=== PATIENT | male | born 1950 | race Caucasian/White ===

== ENCOUNTER 2019-03-25 18:11 | Inpatient (IN) ==
[2019-03-25] MEDS ORDERED: 0.9 % Sodium Chloride 1,000 ML IVC STA (19:29)
[2019-03-25 20:41] LABS: BUN/Creatinine Ratio 28 (6-26); Blood Urea Nitrogen 35 mg/dL (8-23); Calcium 9.2 mg/dL (8.6-10.3); Carbon Dioxide 25 mEq/L (23-29); Chloride 102 mEq/L (98-107); Glucose 97 mg/dL (70-105); Magnesium 2.5 mg/dL (1.6-2.6); Osmolality,Calculated 280 (280-300); Potassium 4.2 mEq/L (3.5-5.1); Sodium 131 mEq/L (136-145); eGFR For African Americans > 60 (> 60); eGFR For Non-African Americans 57 (> 60)
[2019-03-25] MEDS ORDERED: Ondansetron 4 MG/2 ML VIAL IVP PRN (22:17)
[2019-03-25] MEDS ORDERED: Naloxone 0.4 MG/ML INJ IVP PRN (22:17)
[2019-03-25 22:58] LABS: Bilirubin,Urine Negative (Negative); Blood,Urine Large (Negative); Clarity,Urine Clear (Clear); Color,Urine Yellow (Yellow); Glucose,Urine (UA) Normal (Normal); Ketones,Urine Trace mg/dL (Negative); Leukocyte Esterase,Urine Moderate (Negative); Nitrite,Urine Negative (Negative); Protein,Urine 30 mg/dL (Neg-Trace); Specific Gravity,Urine 1.018 (1.010-1.025); Urobilinogen,Urine Normal (Normal)
[2019-03-25 23:08] LABS: Bacteria,Urine None Seen per hpf (None-Few); Hyaline Casts,Urine None Seen per lpf (None-Few); Squamous Epithelial Cell,Urine Moderate per lpf (None-Few); WBC,Urine 15-30 per hpf (0-3)
[2019-03-25] MEDS: D5% in 0.9% NACL 1,000 ML IVC SCH (23:14)
[2019-03-25] MEDS: *HR* OxyCODONE Immed Rel 5 MG TABLET PO PRN (23:17)
[2019-03-25 23:29] LABS: BUN/Creatinine Ratio 28 (6-26); Blood Urea Nitrogen 31 mg/dL (8-23); Calcium 8.8 mg/dL (8.6-10.3); Carbon Dioxide 22 mEq/L (23-29); Chloride 103 mEq/L (98-107); Glucose 88 mg/dL (70-105); Magnesium 2.1 mg/dL (1.6-2.6); Osmolality,Calculated 284 (280-300); Potassium 4.3 mEq/L (3.5-5.1); Sodium 134 mEq/L (136-145); eGFR For African Americans > 60 (> 60); eGFR For Non-African Americans > 60 (> 60)
[2019-03-25 23:38] LABS: Basophils % 0.1 %; Eosinophils % 0.1 %; Hematocrit 27.3 % (37.5-50.1); Hemoglobin 8.6 g/dL (12.9-16.9); Immature Granulocytes % 0.7 % (0-4); Lymphocytes % 9.1 %; Mean Corpuscular HGB Conc 31.5 g/dL (31.6-35.5); Mean Corpuscular Hemoglobin 30.1 pg (28.0-33.3); Mean Corpuscular Volume 95.5 fL (83.0-100.0); Mean Platelet Volume 9.8 fL (9.4-12.4); Monocytes # 0.6 K/mcL (0.0-1.3); Monocytes % 5.3 %; Neutrophils # 8.9 K/mcL (1.6-8.9); Platelet Count 183 K/mcL (140-400); Red Blood Count 2.86 M/mcL (4.19-5.50); Red Cell Distribution Width 15.1 % (11.5-14.5); Segmented Neutrophils % 84.7 %; White Blood Count 10.5 K/mcL (4.3-11.1)
[2019-03-26] MEDS ORDERED: OXYCODONE HCL 5 MG PO SCH
[2019-03-26] MEDS: Cefepime HCl 2,000 MG in Water for inj. (sterile) 20 ML IVP SCH ×3 (00:24→17:49)
[2019-03-26 01:20] LABS: Hematocrit 23.2 % (37.5-50.1); Hemoglobin 7.5 g/dL (12.9-16.9); Mean Corpuscular HGB Conc 32.3 g/dL (31.6-35.5); Mean Corpuscular Hemoglobin 30.2 pg (28.0-33.3); Mean Corpuscular Volume 93.5 fL (83.0-100.0); Mean Platelet Volume 9.9 fL (9.4-12.4); Platelet Count 164 K/mcL (140-400); Red Blood Count 2.48 M/mcL (4.19-5.50); White Blood Count 8.9 K/mcL (4.3-11.1)
[2019-03-26 01:38] LABS: BUN/Creatinine Ratio 30 (6-26); Blood Urea Nitrogen 29 mg/dL (8-23); Calcium 8.3 mg/dL (8.6-10.3); Carbon Dioxide 22 mEq/L (23-29); Chloride 106 mEq/L (98-107); Glucose 114 mg/dL (70-105); Osmolality,Calculated 285 (280-300); Potassium 4.3 mEq/L (3.5-5.1); Sodium 134 mEq/L (136-145); eGFR For African Americans > 60 (> 60); eGFR For Non-African Americans > 60 (> 60)
[2019-03-26] MEDS: *HR* OxyCODONE Immed Rel 5 MG TABLET PO PRN ×4 (06:06→22:47)
[2019-03-26 06:14] LABS: Eosinophils % 0.1 %; Hematocrit 23.5 % (37.5-50.1); Hemoglobin 7.5 g/dL (12.9-16.9); Immature Granulocytes % 0.5 % (0-4); Lymphocytes # 1.3 K/mcL (0.6-4.6); Lymphocytes % 13.2 %; Mean Corpuscular HGB Conc 31.9 g/dL (31.6-35.5); Mean Corpuscular Hemoglobin 30.1 pg (28.0-33.3); Mean Corpuscular Volume 94.4 fL (83.0-100.0); Mean Platelet Volume 9.3 fL (9.4-12.4); Monocytes # 0.8 K/mcL (0.0-1.3); Neutrophils # 7.4 K/mcL (1.6-8.9); Platelet Count 160 K/mcL (140-400); Red Blood Count 2.49 M/mcL (4.19-5.50); Red Cell Distribution Width 15.1 % (11.5-14.5); Segmented Neutrophils % 78.2 %; White Blood Count 9.5 K/mcL (4.3-11.1)
[2019-03-26 06:34] LABS: BUN/Creatinine Ratio 26 (6-26); Blood Urea Nitrogen 25 mg/dL (8-23); Calcium 8.5 mg/dL (8.6-10.3); Carbon Dioxide 24 mEq/L (23-29); Chloride 104 mEq/L (98-107); Glucose 129 mg/dL (70-105); Osmolality,Calculated 288 (280-300); Potassium 4.6 mEq/L (3.5-5.1); Sodium 136 mEq/L (136-145); eGFR For African Americans > 60 (> 60); eGFR For Non-African Americans > 60 (> 60)
[2019-03-26 08:54] LABS: Acinetobacter baumannii by PCR Not Detected (Not Detect); Enterobacteriaceae by PCR Not Detected (Not Detect); Enterococcus by PCR DETECTED (Not Detect); Staphylococcus aureus by PCR Not Detected (Not Detect); Staphylococcus by PCR Not Detected (Not Detect); Streptococcus agalactiae(B)PCR Not Detected (Not Detect); Streptococcus by PCR Not Detected (Not Detect); Streptococcus pneumoniae PCR Not Detected (Not Detect); Streptococcus pyogenes (A) PCR Not Detected (Not Detect); blaKPC Carbapenem-Resist Gene Not Detected (Not Detect); mecA Methicillin-Resist Gene Not Detected (Not Detect); vanA/B Vancomycin-Resist Genes Not Detected (Not Detect)
[2019-03-26 08:55] LABS: Candida albicans by PCR Not Detected (Not Detect); Candida glabrata by PCR Not Detected (Not Detect); Candida krusei by PCR Not Detected (Not Detect); Candida parapsilosis by PCR Not Detected (Not Detect); Candida tropicalis by PCR Not Detected (Not Detect); Enterobacter cloacae Cmplx PCR Not Detected (Not Detect); Escherichia coli by PCR Not Detected (Not Detect); Klebsiella oxytoca by PCR Not Detected (Not Detect); Klebsiella pneumoniae by PCR Not Detected (Not Detect); Proteus by PCR Not Detected (Not Detect); Pseudomonas aeruginosa by PCR Not Detected (Not Detect); Serratia marcescens by PCR Not Detected (Not Detect)
[2019-03-26 12:17] LABS: Hematocrit 23.2 % (37.5-50.1); Hemoglobin 7.5 g/dL (12.9-16.9)
[2019-03-26] MEDS: D5% in 0.9% NACL 1,000 ML IVC SCH (12:49)
[2019-03-26] MEDS ORDERED: NON-FORMULARY MEDICATION 1 EACH EACH (Melatonin 5 MG) PO PRN (14:52)
[2019-03-26] MEDS ORDERED: Isovue-370 500 ML BOTTLE IVP ONE (16:34)
[2019-03-26 17:32] LABS: Alanine Aminotransferase 20 Units/L (7-52); Albumin 2.7 g/dL (3.5-5.7); Albumin/Globulin Ratio 0.8 (1.1-2.2); Alkaline Phosphatase 64 Units/L (34-104); Amylase 28 Units/L (29-103); Aspartate Amino Transferase 18 Units/L (13-39); Bilirubin,Direct 0.3 mg/dL (0.0-0.2); Bilirubin,Indirect 0.5 mg/dL (0.0-1.2); Bilirubin,Total 0.8 mg/dL (0.3-1.0); Globulin 3.5 g/dL (2.4-3.5); Lipase < 3 Units/L (11-82); Total Protein 6.2 g/dL (6.4-8.9)
[2019-03-26] MEDS: Acetaminophen 325 MG TABLET PO PRN (23:24)
[2019-03-27] MEDS: Ampicillin/Sulbactam 3,000 MG in 0.9 % Sodium Chloride Mini Bag 100 ML IVPB SCH ×4 (00:25→18:06)
[2019-03-27] MEDS: *HR* OxyCODONE Immed Rel 5 MG TABLET PO PRN ×4 (03:37→19:27)
[2019-03-27 04:32] LABS: Basophils % 0.1 %; Eosinophils # 0.1 K/mcL (0.0-0.6); Eosinophils % 0.4 %; Hematocrit 24.3 % (37.5-50.1); Hemoglobin 7.6 g/dL (12.9-16.9); Immature Granulocytes % 0.7 % (0-4); Lymphocytes # 1.6 K/mcL (0.6-4.6); Lymphocytes % 11.8 %; Mean Corpuscular HGB Conc 31.3 g/dL (31.6-35.5); Mean Corpuscular Hemoglobin 29.8 pg (28.0-33.3); Mean Corpuscular Volume 95.3 fL (83.0-100.0); Mean Platelet Volume 9.6 fL (9.4-12.4); Monocytes # 1.2 K/mcL (0.0-1.3); Neutrophils # 10.5 K/mcL (1.6-8.9); Platelet Count 167 K/mcL (140-400); Red Blood Count 2.55 M/mcL (4.19-5.50); Red Cell Distribution Width 15.3 % (11.5-14.5); White Blood Count 13.5 K/mcL (4.3-11.1)
[2019-03-27 04:50] LABS: BUN/Creatinine Ratio 21 (6-26); Blood Urea Nitrogen 22 mg/dL (8-23); Calcium 8.4 mg/dL (8.6-10.3); Carbon Dioxide 23 mEq/L (23-29); Chloride 104 mEq/L (98-107); Glucose 119 mg/dL (70-105); Osmolality,Calculated 282 (280-300); Potassium 4.4 mEq/L (3.5-5.1); Sodium 134 mEq/L (136-145); eGFR For African Americans > 60 (> 60); eGFR For Non-African Americans > 60 (> 60)
[2019-03-27] MEDS: D5% in 0.9% NACL 1,000 ML IVC SCH ×2 (05:10→21:19)
[2019-03-27] MEDS: Acetaminophen 325 MG TABLET PO PRN (08:03)
[2019-03-27] MEDS ORDERED: Gadolinium Contrast Agent (WT Based) IV PRN (17:12)
[2019-03-27] MEDS: traZODone 50 MG TABLET PO PRN (22:46)
[2019-03-28] MEDS: *HR* OxyCODONE Immed Rel 5 MG TABLET PO PRN ×4 (00:48→22:52)
[2019-03-28] MEDS: Ampicillin/Sulbactam 3,000 MG in 0.9 % Sodium Chloride Mini Bag 100 ML IVPB SCH ×4 (00:48→18:28)
[2019-03-28 07:13] LABS: Eosinophils # 0.1 K/mcL (0.0-0.6); Eosinophils % 0.9 %; Hematocrit 22.6 % (37.5-50.1); Immature Granulocytes % 0.6 % (0-4); Lymphocytes # 1.2 K/mcL (0.6-4.6); Lymphocytes % 9.4 %; Mean Corpuscular Hemoglobin 29.3 pg (28.0-33.3); Mean Corpuscular Volume 94.6 fL (83.0-100.0); Mean Platelet Volume 9.5 fL (9.4-12.4); Monocytes # 1.2 K/mcL (0.0-1.3); Neutrophils # 10.4 K/mcL (1.6-8.9); Platelet Count 188 K/mcL (140-400); Red Blood Count 2.39 M/mcL (4.19-5.50); Red Cell Distribution Width 15.2 % (11.5-14.5); Segmented Neutrophils % 80.1 %; White Blood Count 12.9 K/mcL (4.3-11.1)
[2019-03-28 07:32] LABS: BUN/Creatinine Ratio 19 (6-26); Blood Urea Nitrogen 18 mg/dL (8-23); Calcium 8.4 mg/dL (8.6-10.3); Carbon Dioxide 24 mEq/L (23-29); Chloride 103 mEq/L (98-107); Glucose 118 mg/dL (70-105); Osmolality,Calculated 279 (280-300); Potassium 4.3 mEq/L (3.5-5.1); Sodium 133 mEq/L (136-145); eGFR For African Americans > 60 (> 60); eGFR For Non-African Americans > 60 (> 60)
[2019-03-28] MEDS: D5% in 0.9% NACL 1,000 ML IVC SCH (12:30)
[2019-03-28] MEDS ORDERED: Aminoglycoside Consult 1 EACH MC ONE (12:30)
[2019-03-28] MEDS ORDERED: Gadolinium Contrast Agent (WT Based) IV PRN (14:53)
[2019-03-28] MEDS ORDERED: D5% in 0.9% NACL 1,000 ML IVC SCH (16:31)
[2019-03-28] MEDS: Ipratropium/Albuterol Neb 3 ML IH PRN ×2 (17:53→20:29)
[2019-03-28] MEDS: traZODone 50 MG TABLET PO PRN (22:53)
[2019-03-29] MEDS: Ampicillin/Sulbactam 3,000 MG in 0.9 % Sodium Chloride Mini Bag 100 ML IVPB SCH ×4 (01:18→12:48)
[2019-03-29 04:54] LABS: Basophils % 0.1 %; Eosinophils # 0.1 K/mcL (0.0-0.6); Eosinophils % 0.7 %; Hematocrit 23.3 % (37.5-50.1); Hemoglobin 7.3 g/dL (12.9-16.9); Immature Granulocytes % 0.4 % (0-4); Lymphocytes # 1.6 K/mcL (0.6-4.6); Lymphocytes % 11.6 %; Mean Corpuscular HGB Conc 31.3 g/dL (31.6-35.5); Mean Corpuscular Hemoglobin 29.2 pg (28.0-33.3); Mean Corpuscular Volume 93.2 fL (83.0-100.0); Mean Platelet Volume 9.2 fL (9.4-12.4); Monocytes # 1.2 K/mcL (0.0-1.3); Neutrophils # 10.7 K/mcL (1.6-8.9); Platelet Count 208 K/mcL (140-400); Red Cell Distribution Width 15.2 % (11.5-14.5); Segmented Neutrophils % 78.2 %; White Blood Count 13.7 K/mcL (4.3-11.1)
[2019-03-29 05:13] LABS: BUN/Creatinine Ratio 21 (6-26); Blood Urea Nitrogen 18 mg/dL (8-23); Calcium 8.6 mg/dL (8.6-10.3); Carbon Dioxide 21 mEq/L (23-29); Chloride 103 mEq/L (98-107); Glucose 117 mg/dL (70-105); Osmolality,Calculated 279 (280-300); Potassium 4.5 mEq/L (3.5-5.1); Sodium 133 mEq/L (136-145); eGFR For African Americans > 60 (> 60); eGFR For Non-African Americans > 60 (> 60)
[2019-03-29] MEDS: *HR* OxyCODONE Immed Rel 5 MG TABLET PO PRN ×4 (05:45→21:08)
[2019-03-29] MEDS: Ipratropium/Albuterol Neb 3 ML IH SCH ×3 (10:58→21:46)
[2019-03-29] MEDS ORDERED: Aminoglycoside Consult 1 EACH MC ONE (12:30)
[2019-03-29 12:35] LABS: INR 1.7
[2019-03-29 12:37] LABS: Activated Partial Thrombo Time 31.7 Seconds (26.0-36.0)
[2019-03-29] MEDS ORDERED: Gentamicin 70 MG in 0.9 % Sodium Chloride 100 ML IVPB SCH (15:00)
[2019-03-29] MEDS ORDERED: Gentamicin 120 MG in 0.9 % Sodium Chloride 100 ML IVPB ONE (16:00)
[2019-03-29] MEDS: levoFLOXacin 500 MG TABLET PO SCH (16:49)
[2019-03-29] MEDS: Ampicillin 2 GM in 0.9 % Sodium Chloride Mini Bag 100 ML IVPB SCH ×2 (16:51→21:11)
[2019-03-30] MEDS: *HR* OxyCODONE Immed Rel 5 MG TABLET PO PRN ×2 (01:15→12:17)
[2019-03-30] MEDS: Ampicillin 2 GM in 0.9 % Sodium Chloride Mini Bag 100 ML IVPB SCH ×2 (01:20→05:00)
[2019-03-30] MEDS ORDERED: *HR* Metoprolol 5 MG/5 ML VIAL IVP ONE ×5 (02:21→02:52)
[2019-03-30] MEDS: DilTIAZem 50 MG in 0.9 % Sodium Chloride 40 ML IVC SCH ×2 (03:41→08:38)
[2019-03-30] MEDS ORDERED: Gentamicin 100 MG in 0.9 % Sodium Chloride 100 ML IVPB SCH (04:00)
[2019-03-30] MEDS: Ipratropium/Albuterol Neb 3 ML IH SCH (04:20)
[2019-03-30] MEDS ORDERED: Furosemide 20 MG/2 ML VIAL IVP ONE ×2 (06:05→09:21)
[2019-03-30 06:36] LABS: Basophils % 0.1 %; Eosinophils # 0.1 K/mcL (0.0-0.6); Eosinophils % 0.5 %; Hematocrit 24.6 % (37.5-50.1); Hemoglobin 7.7 g/dL (12.9-16.9); Immature Granulocytes % 0.6 % (0-4); Lymphocytes % 6.7 %; Mean Corpuscular HGB Conc 31.3 g/dL (31.6-35.5); Mean Corpuscular Hemoglobin 29.2 pg (28.0-33.3); Mean Corpuscular Volume 93.2 fL (83.0-100.0); Mean Platelet Volume 9.1 fL (9.4-12.4); Monocytes # 1.1 K/mcL (0.0-1.3); Monocytes % 7.6 %; Neutrophils # 12.2 K/mcL (1.6-8.9); Platelet Count 286 K/mcL (140-400); Red Blood Count 2.64 M/mcL (4.19-5.50); Red Cell Distribution Width 15.2 % (11.5-14.5); Segmented Neutrophils % 84.5 %; White Blood Count 14.4 K/mcL (4.3-11.1)
[2019-03-30 06:58] LABS: BUN/Creatinine Ratio 24 (6-26); Blood Urea Nitrogen 19 mg/dL (8-23); Calcium 9.1 mg/dL (8.6-10.3); Carbon Dioxide 20 mEq/L (23-29); Chloride 102 mEq/L (98-107); Glucose 123 mg/dL (70-105); Osmolality,Calculated 282 (280-300); Potassium 5.1 mEq/L (3.5-5.1); Sodium 134 mEq/L (136-145); eGFR For African Americans > 60 (> 60); eGFR For Non-African Americans > 60 (> 60)
[2019-03-30] MEDS ORDERED: *HR* Heparin 5,000 UNIT/ML VIAL IVP PRN ×2 (07:32)
[2019-03-30] MEDS ORDERED: *HR* Heparin 5,000 UNIT/ML VIAL IVP ONE (07:32)
[2019-03-30] MEDS ORDERED: Heparin 25,000 UNIT/250 ML D5W 25,000 UNIT/250 ML IV.SOLN IVC SCH (07:45)
[2019-03-30] MEDS ORDERED: Ampicillin 2 GM in 0.9 % Sodium Chloride Mini Bag 100 ML IVPB SCH (08:00)
[2019-03-30 08:01] VITALS: BP 116/58
[2019-03-30] MEDS: levoFLOXacin 500 MG TABLET PO SCH (08:34)
[2019-03-30 08:57] LABS: Heparin anti-factor XA UFH 0.01 IU/mL (0.30-0.70)
[2019-03-30 08:58] LABS: INR 1.8; Prothrombin Time 20.9 Seconds (9.4-12.1)
[2019-03-30] MEDS ORDERED: Levalbuterol Neb 1.25 MG/3 ML IH SCH (10:00)
[2019-03-30] MEDS ORDERED: Amiodarone Premix 360 MG/200 ML BAG IVC ONE (10:46)
[2019-03-30] MEDS ORDERED: Amiodarone Premix 150 MG/100 ML BAG IVPB ONE (10:46)
[2019-03-30] MEDS ORDERED: Amiodarone Premix 360 MG/200 ML BAG IVC SCH (11:00)
[2019-03-30 11:06] LABS: ABG Base Excess -3 mEq/L (-2 to 3); ABG HCO3 21 mEq/L (21-27); ABG Oxygen Saturation 89 % (95-98); ABG PCO2 32 mmHg (35-45); ABG PH 7.42 pH Units (7.32-7.45); ABG PO2 55 mmHg (85-104); ABG TCO2 22 mEq/L (20-26)
[2019-03-30] MEDS ORDERED: DilTIAZem 50 MG in 0.9 % Sodium Chloride 40 ML IVC SCH (12:00)
[2019-03-30] MEDS ORDERED: Gentamicin 90 MG in 0.9 % Sodium Chloride 100 ML IVPB SCH (18:00)
== END 2019-03-30 12:31 | disposition critical access hospital (66) | DRG 871 ==
LOC: 3NENU 18:11 → EMEROOARM 18:11 → SUATTDRO 20:39 → 3NENU 21:16 → 2NENU 03-28 15:28
PROVIDERS: ADMIT Pharmacist; ATTEND Internal Medicine